=== PATIENT | female | born 1995 | race Caucasian/White ===

== ENCOUNTER 2020-04-19 14:04 | Outpatient (CLI) | payer OTHER, SELFPAY ==
--- NOTE | ~2020-04-19 | US_ITS ---
US breast BI complete INDICATION: Palpable breast lumps TECHNIQUE: Dedicated bilateral breast ultrasound COMPARISON: Echo prior FINDINGS: The breasts are composed of normal heterogeneous echotexture without focal solid or cystic mass. IMPRESSION: 1: Normal bilateral breast ultrasound. BI-RADS CATEGORY 1 - NEGATIVE Reviewed, dictated and finalized at location A. L SPAR OPERATOR
== END 2020-04-19 14:05 | disposition home or self-care (01) ==
PROVIDERS: PCP Family Medicine; Visit Provider Family Medicine
DX: N63.10 Unspecified lump in the right breast, unspecified quadrant (principal)
CPT/HCPCS: 76641

== ENCOUNTER → 2020-07-28 14:24 | Outpatient (CLI) | payer OTHER, SELFPAY ==
--- NOTE | ~2020-07-28 | MR_ITS ---
EXAMINATION: MR thoracic spine wo con DATE: 07/28/2020 15:05 INDICATION: Thoracic spine pain TECHNIQUE: Magnetic resonance imaging (MRI) of the thoracic spine was performed without intravenous c ontrast. Sagittal localizer T1-weighted FSE of the cervicothoracic spine was obtained. Thoracic spine sequences included sagittal T2-weighted FSE, sagittal T1-weighted SE, Sagittal T2-weighted FS FSE, a nd axial T2-weighted FSE. COMPARISON: None FINDINGS: Mild thoracolumbar levocurvature. Sagittal alignment is normal.Vertebral body heights are normal. Sma ll T1 and T2 hyperintense hemangioma at T4. Marrow signal is otherwise normal. Normal disc heights an d signal. Disc is minimally bulging at T11-T12, mildly at T12-L1 and L1-L2.The more cephalad thoracic discs do not extend beyond the endplate margins. No central canal stenosis. There is normal spinal c ord signal. The conus terminates at L1-L2. Multilevel minimal to mild thoracic facet osteoarthritis. No neural foraminal stenosis. Paravertebral soft tissues are unremarkable. IMPRESSION: 1. Mild thoracolumbar levocurvature and minimal spondylosis. Reviewed, dictated and finalized at location A.
== END ==
PROVIDERS: PCP Family Medicine; Visit Provider Family Medicine
DX: M54.6 Pain in thoracic spine (principal); M47.815 Spondylosis without myelopathy or radiculopathy, thoracolumbar region; M41.85 Other forms of scoliosis, thoracolumbar region
CPT/HCPCS: 72146

== ENCOUNTER 2021-01-16 11:01 | Emergency (ER) | payer OTHER, SELFPAY ==
--- NOTE | ~2021-01-16 | XR_ITS ---
EXAMINATION: XR chest 2V 01/16/2021 11:28 INDICATION: Midsternal chest pressure PROCEDURE: 2 view chest COMPARISON: No prior studies for comparison. FINDINGS: The lungs are clear. The cardiomediastinal silhouette is within normal limits. There are no pleural effusions. There is no pneumothorax suspected. IMPRESSION: 1: NO ACUTE CARDIOPULMONARY DISEASE. Reviewed, dictated and finalized at location B. E SETTER GRINDER MACHINE
--- NOTE | 2021-01-16 11:04 | ECG_ITS ---
Measurements Intervals [place] Rate: 95 P: 77 DC: 126 QRS: 88 QRSD: 90 T: 42 QT: 322 QTc: 406 Interpretive Statements SINUS RHYTHM WITH MARKED SINUS ARRHYTHMIA MINIMAL Q WAVES- ANTEROLAT/INF LEADS BASELINE ARTIFACT- I, II BORDERLINE ECG Electronically Signed On 01-16-2021 12:18:16 VIBRATION TECHNICIAN by Louis Díaz D.O.
[2021-01-16 11:07] VITALS: BP 118/78; PULSE 100; RESP 16; TEMP 36.1; O2SAT 100
[2021-01-16 11:30] LABS: Eosinophils Absolute Auto 0.1 K/mm3 (0-0.3); Eosinophils Percent Auto 1.7 % (0-4.4); Hematocrit 38.6 % (37.0-47.0); Hemoglobin 12.5 g/dL (12.0-15.0); Immature Granulocyte Absolute 0.01 K/mm3 (0.00-0.031); Immature Granulocyte Percent A 0.2 % (0-0.5); Lymphocytes Absolute Auto 1.81 K/mm3 (0.9-3.2); Lymphocytes Percent Auto 44.9 % (18.3-44.2); Mean Corpuscular HGB Conc 32.4 g/dl (32-36); Mean Corpuscular Hemoglobin 27.4 pg (26-34); Mean Corpuscular Volume 84.6 fl (80-100); Monocytes Absolute Auto 0.4 K/mm3 (0.1-0.6); Monocytes Percent Auto 9.2 % (2.6-8.5); Neutrophils Absolute Auto 1.7 K/mm3 (1.3-6.7); Platelet Count Result 270 k/mm3 (150-375); Red Blood Count 4.56 M/mm3 (4.2-5.4); Red Cell Distribution Width 12.1 % (11.5-14.5)
[2021-01-16 11:39] LABS: Prothrombin Time 12.7 Seconds (11.1-14.7)
[2021-01-16 11:40] LABS: Partial Thromboplastin Time 31.3 SECONDS (22.3-36.8)
[2021-01-16 11:45] LABS: Alanine Aminotransferase 18 U/L (4-35); Albumin Level 5.1 g/dL (3.5-5.1); Alkaline Phosphatase 49 U/L (38-126); Anion Gap 12 mmol/L (8-16); Aspartate Amino Transferase 27 U/L (14-36); Bilirubin,Total 0.8 mg/dL (0.2-1.3); Blood Urea Nitrogen 8 mg/dL (7-17); Calcium 9.9 mg/dL (8.4-10.2); Carbon Dioxide 21 mmol/L (22-30); Chloride 105 mmol/L (98-107); Estimated CRCL calculation 127 ml/min; Estimated Glomerular Filt Rate > 60; Glucose 101 mg/dL (65-110); Lipase 63 U/L (23-300); Potassium 3.5 mmol/L (3.4-5.0); Sodium 138 mmol/L (137-145)
[2021-01-16 11:56] LABS: Troponin I < 0.012 ng/mL (0.000-0.034)
[2021-01-16 13:11] VITALS: BP 142/78; PULSE 80; RESP 14; O2SAT 100
[2021-01-16 13:35] VITALS: PULSE 87
--- NOTE | 2021-01-16 13:50 | ED.GENADULT ---
HPI - General Adult General Chief complaint: Chest Pain Stated complaint: off and on Chest Pain Time Seen by Provider: 01/16/21 13:32 Source: patient and RN notes reviewed History of Present Illness HPI narrative: Patient is 25 y/o female complaining of intermittent chest pain for 1-2 weeks. She describes her pain as a pressure and rates it as 5/10 when it occurs. There no known alleviating or exacerbating factor, but her pain usually resolves spontaneously. She has no chest pain at this time. She has no cough or SOB. Related Data Home Medications Medication Instructions Recorded Confirmed No Home Medications 01/16/21 01/16/21 Allergies Allergy/AdvReac Type Severity Reaction Status Date / Time Sulfa (Sulfonamide Allergy Unknown Verified 01/16/21 13:39 Antibiotics) Review of Systems Constitutional: Constitutional: Denies chills, Denies fever(s), Denies headache(s) and Denies weakness Eyes: Eyes: Denies blurry vision ENT: Denies headache(s) and Denies neck pain Cardiovascular: Cardiovascular: Reports chest pain and Denies dyspnea Respiratory: Respiratory: Denies cough and Denies dyspnea Gastrointestinal: Gastrointestinal: Denies abdominal pain, Denies diarrhea, Denies nausea and Denies vomiting Genitourinary: Genitourinary: Denies hematuria and Denies dysuria Musculoskeletal: Musculoskeletal: Denies back pain and Denies neck pain Neurologic: Denies headache(s) and Denies weakness Exam Const: General: no acute distress and well developed Orientation/consciousness: oriented to person, oriented to place, oriented to time and patient oriented x3 HENMT: Head: normocephalic Ears: external ears normal General nose exam: Normal external nose present Eyes: General: appearance normal, both eyes and all related structures Conjunctivae: conjunctivae normal Neck: Neck: normal visual inspection and full ROM Chest: Chest palpation & inspection: normal inspection of the chest and no tenderness Resp: Effort & Inspection: normal respiratory effort Auscultation: clear to auscultation bilaterally Cardio: Rate: regular rate Rhythm: regular rhythm GI: GI Palp: No abdominal tenderness and Yes Soft to palpation Skin: General skin exam: normal color and turgor normal Neuro: General: oriented to person, oriented to place, oriented to time and patient oriented x3 Cognition (Neuro): normal cognition Extrem: General: normal to inspection, full ROM and no pedal edema Psych: Appearance: grossly normal Mental Status: mental status grossly normal Affect: normal affect Course Vital Signs Vital signs: Vital Signs Temperature 36.1 C L 01/16/21 11:07 Pulse Rate 100 01/16/21 11:07 Respiratory Rate 16 01/16/21 11:07 Blood Pressure 118/78 01/16/21 11:07 Pulse Oximetry 100 01/16/21 11:07 Temperature 36.1 C L 01/16/21 11:07 Pulse Rate 78 01/16/21 14:32 Respiratory Rate 16 01/16/21 14:32 Blood Pressure 120/92 H 01/16/21 14:32 Pulse Oximetry 100 01/16/21 14:32 Medical Decision Making Vital Signs Vital Signs: Vital Signs Temperature 36.1 C L 01/16/21 11:07 Pulse Rate 100 01/16/21 11:07 Respiratory Rate 16 01/16/21 11:07 Blood Pressure 118/78 01/16/21 11:07 Pulse Oximetry 100 01/16/21 11:07 Temperature 36.1 C L 01/16/21 11:07 Pulse Rate 78 01/16/21 14:32 Respiratory Rate 16 01/16/21 14:32 Blood Pressure 120/92 H 01/16/21 14:32 Pulse Oximetry 100 01/16/21 14:32 Lab Data Result diagrams: 01/16/21 11:20 01/16/21 11:20 Labs: Lab Results 01/16/21 01/16/21 01/16/21 Range/Units 11:20 11:20 11:20 WBC 4.0 L (4.5-10.0) K/mm3 RBC 4.56 (4.2-5.4) M/mm3 Hgb 12.5 (12.0-15.0) g/dL Hct 38.6 (37.0-47.0) % MCV 84.6 (80-100) fl MCH 27.4 (26-34) pg MCHC 32.4 (32-36) g/dl RDW 12.1 (11.5-14.5) % Plt Count 270 (150-375) k/mm3 MPV 10.0 (7.4-10.4) fl Immature Gran % (Auto)
[2021-01-16] MEDS: ASPIRIN 81 MG CHEWABLE TABLET 324 MG PO (13:54)
[2021-01-16 14:23] LABS: Add Urine Microscopic? YES; Appearance Urine Cloudy (Clear); Bacteria Urine Trace /hpf; Bilirubin Urine Negative (Negative); Blood Urine 1+ (Negative); Color Urine Yellow (Yellow); Glucose Urine UA Negative (Negative); Ketones Urine Negative (Negative); Leukocyte Esterase Ur Trace LEU/UL (Negative); Mucus Urine Rare /lpf; Nitrate Urine Negative (Negative); Protein Urine Negative (Negative); Specific Grav Ur 1.019 (1.001-1.035); Squamous Epithelial Cell Urine Moderate /hpf (Few); Urobilinogen Urine Negative mg/dL (<2.0)
[2021-01-16 14:31] VITALS: BP 120/92; PULSE 75; RESP 16; O2SAT 100
[2021-01-16 14:32] VITALS: BP 120/92; PULSE 78; RESP 16; O2SAT 100
[2021-01-16 15:19] LABS: Troponin I < 0.012 ng/mL (0.000-0.034)
[2021-01-16 15:35] LABS: D Dimer 0.27 ug/mL (<0.48)
[2021-01-16 16:08] VITALS: BP 115/68; PULSE 80; RESP 17; O2SAT 97
== END 2021-01-16 16:15 | disposition home or self-care (01) ==
PROVIDERS: Emergency Provider Emergency Medicine; PCP Family Medicine
DX: R07.9 Chest pain, unspecified (principal)
CPT/HCPCS: 36415; 71046; 80053; 81001; 81025; 83690; 84484; 85025; 85380; 85610; 85730; 93005; 99284; A9270